=== PATIENT | female | born 1985 | race Caucasian/White ===

== ENCOUNTER → 2017-01-17 | Outpatient (CLI) | payer OTHER ==
[~2017-01-17] MED LIST: /TERBI25T OR; ACET50TA PO; ANUS2.5C2 EXT; BUPRPOW2 OR; CITRACAL; DOCU10ELUD PO; DRIS50002 PO; FLEX10TA2 PO; IBUP100SUS PO; MELOPOW PO; MOM30SS PO; PRENTAB74 PO; PRIL40CA PO; RIBAPOW11; SOBOXONE PO; SUBO8MIS SL; THERGRAN; TIZA4TAB; TOPI25TA2 PO; VITA1CAP25 PO; ZONI25CA2 PO; [UNRECOGNIZED DRUG - OTHER]; [UNRECOGNIZED DRUG - OTHER]; flexeril PO
[2017-01-17 18:17] LABS: BASO % 0.7 % (0.0-1.0); EOS # 0.2 K/mm3 (0.0-0.50); EOS % 3.1 % (0.0-3.0); LARGE UNSTAINED CELL # 0.1 K/mm3 (0.0-0.4); LARGE UNSTAINED CELL % 1.8 % (0.0-4.0); LYMPH # 3.2 K/mm3 (1.5-4.5); LYMPH % 40.5 % (24.0-44.0); MEAN CORPUSCULAR HEMOGLOBIN 29.3 pg (27.0-33.0); MEAN CORPUSCULAR HGB CONC 33.3 g/dl (32.0-36.5); MEAN CORPUSCULAR VOLUME 87.9 fl (80.0-96.0); MONO # 0.3 K/mm3 (0.0-0.8); MONO % 4.1 % (0.0-5.0); NEUTROPHILS # 3.8 K/mm3 (1.8-7.7); NEUTROPHILS % 49.9 % (36.0-66.0); PLATELET COUNT, AUTOMATED 234 k/mm3 (150-450); WHITE BLOOD COUNT 7.6 K/mm3 (4.0-10.0)
[2017-01-17 18:57] LABS: ALBUMIN/GLOBULIN RATIO 1.43 (1.00-1.93); ALKALINE PHOSPHATASE 66 U/L (45-117); ALT/SGPT 33 U/L (12-78); ANION GAP 6 MEQ/L (8-16); AST/SGOT 14 U/L (15-37); BILIRUBIN,TOTAL 0.5 MG/DL (0.2-1.0); BLOOD UREA NITROGEN 12 MG/DL (7-18); CALCIUM LEVEL 8.8 MG/DL (8.5-10.1); CARBON DIOXIDE LEVEL 25 MEQ/L (21-32); CHLORIDE LEVEL 108 MEQ/L (98-107); CREATININE FOR GFR 0.67 MG/DL (0.55-1.02); GLOMERULAR FILTRATION RATE > 60.0 (>60); GLUCOSE, FASTING 79 MG/DL (70-105); SODIUM LEVEL 139 MEQ/L (136-145); TOTAL PROTEIN 6.8 GM/DL (6.4-8.2)
[2017-01-17 19:02] LABS: ERYTHROCYTE SEDIMENTATION RATE 4 mm/hr (0-20)
== END ==
LOC: M LAB 17:18
PROVIDERS: ATTEND Nurse Practitioner Family
DX: R60.1 Generalized edema (principal); M25.50 Pain in unspecified joint; R89.8 Other abnormal findings in specimens from other organs, systems and tissues; E55.9 Vitamin D deficiency, unspecified

== ENCOUNTER → 2017-01-17 | Outpatient (REF) | payer OTHER | LOC: M LAB REF 12:52 | PROVIDERS: ATTEND Nurse Practitioner Family | DX: R81 Glycosuria (principal) ==

== ENCOUNTER 2018-01-29 11:50 | Emergency (ER) | payer OTHER ==
[2018-01-29] MEDS: LIDOCAINE 2% W/EPIN INJ 20ML **PRES FREE INJ (13:15)
[2018-01-29] MEDS: ADACEL/BOOSTRIX VACCINE (DIPHTH/PERTUSS/ACELL/TETANUS)0.5ML SYR (90715) IM (13:18)
== END 2018-01-29 14:41 | disposition home or self-care (01) ==
LOC: M ED 11:50
DX: S61.012A Laceration without foreign body of left thumb without damage to nail, initial encounter (principal); W26.0XXA Contact with knife, initial encounter; Y92.59 Other trade areas as the place of occurrence of the external cause; Y99.0 Civilian activity done for income or pay; F31.9 Bipolar disorder, unspecified; K21.9 Gastro-esophageal reflux disease without esophagitis; Z79.891 Long term (current) use of opiate analgesic; Z79.899 Other long term (current) drug therapy; Z91.048 Other nonmedicinal substance allergy status; F17.210 Nicotine dependence, cigarettes, uncomplicated
CPT/HCPCS: 90715

== ENCOUNTER 2018-02-02 09:48 | Emergency (ER) | payer OTHER | END 2018-02-02 10:59 | disposition home or self-care (01) | LOC: M ED 09:48 | DX: S61.012D Laceration without foreign body of left thumb without damage to nail, subsequent encounter (principal); W26.0XXD Contact with knife, subsequent encounter; F31.9 Bipolar disorder, unspecified; K21.9 Gastro-esophageal reflux disease without esophagitis; F17.210 Nicotine dependence, cigarettes, uncomplicated; Z79.891 Long term (current) use of opiate analgesic; Z79.899 Other long term (current) drug therapy; Z91.048 Other nonmedicinal substance allergy status | CPT/HCPCS: 99282 ==

== ENCOUNTER → 2018-02-08 | Outpatient (REF) | payer OTHER, MEDICAID ==
[2018-02-10 16:20] LABS: H. PYLORI BREATH TEST Positive (Negative)
== END ==
LOC: M LAB REF 09:12
DX: K21.9 Gastro-esophageal reflux disease without esophagitis (principal)
CPT/HCPCS: 83013

== ENCOUNTER → 2018-11-01 | Outpatient (REF) | payer OTHER, MEDICAID ==
[~2018-11-01] MED LIST changes: -/TERBI25T OR; -ACET50TA PO; -DOCU10ELUD PO; +DOCU5LIQ PO; -DRIS50002 PO; +DRIS50003 PO; +IBUP100S44 PO; -IBUP100SUS PO; +IBUP80TA PO; +LAMI1TAB6 OR; +MAPA500T17 PO; +TRIPOIN9 TOP
[2018-11-01 13:37] LABS: ALBUMIN 4.1 GM/DL (3.2-5.2); ALT/SGPT 21 U/L (12-78); BILIRUBIN,TOTAL 0.6 MG/DL (0.2-1.0); BLOOD UREA NITROGEN 10 MG/DL (7-18); CALCIUM LEVEL 8.5 MG/DL (8.5-10.1); CARBON DIOXIDE LEVEL 24 MEQ/L (21-32); CHLORIDE LEVEL 106 MEQ/L (98-107); CHOLESTEROL LEVEL 180 MG/DL (<200); CREATININE FOR GFR 0.71 MG/DL (0.55-1.30); GLOMERULAR FILTRATION RATE > 60.0 (>60); GLUCOSE, FASTING 117 MG/DL (70-100); HDL CHOLESTEROL 40 MG/DL (>40); LDL CHOLESTEROL 120 MG/DL (<100); NON-HDL-C 140 MG/DL; POTASSIUM SERUM 3.7 MEQ/L (3.5-5.1); SODIUM LEVEL 137 MEQ/L (136-145); THYROID STIMULATING HORMONE 0.653 uIU/ML (0.358-3.740); TOTAL PROTEIN 6.9 GM/DL (6.4-8.2); TRIGLYCERIDES LEVEL 100 MG/DL (<150)
[2018-11-01 14:12] LABS: APPEARANCE, URINE CLEAR (CLEAR); BACTERIA, URINE AUTO 1+ (NEGATIVE); BILIRUBIN, URINE AUTO NEGATIVE (NEGATIVE); BLOOD, URINE BLOOD NEGATIVE (NEGATIVE); COLOR, URINE YELLOW (YELLOW); GLUCOSE, URINE (UA) AUTO NEGATIVE (NEGATIVE); KETONE, URINE AUTO NEGATIVE (NEGATIVE); LEUKOCYTE ESTERASE, URINE AUTO NEGATIVE (NEGATIVE); NITRITE, URINE AUTO NEGATIVE (NEGATIVE); PROTEIN, URINE AUTO NEGATIVE (NEGATIVE); RBC, URINE AUTO 0 /HPF (0-3); SPECIFIC GRAVITY URINE AUTO 1.008 (1.002-1.035); SQUAMOUS EPITHELIAL CELL UR AU 0 /HPF (0-6); UROBILINOGEN, URINE AUTO 0.2 mg/dL (0.0-2.0); WBC, URINE AUTO 1 /HPF (0-3)
[2018-11-01 14:26] LABS: CHLAMYDIA DNA AMPLIFICATION NEGATIVE (NEGATIVE); GC DNA AMPLIFICATION NEGATIVE (NEGATIVE)
[2018-11-01 14:26] LABS: HEMOGLOBIN A1c 5.6 %
[2018-11-01 15:53] LABS: BASO % 0.5 % (0.0-1.0); EOS # 0.2 10^3/uL (0.0-0.50); EOS % 2.9 % (0.0-3.0); HEMATOCRIT 43.4 % (36.0-47.0); HEMOGLOBIN 14.3 g/dl (12.0-15.5); LYMPH # 2.8 10^3/uL (1.5-4.5); LYMPH % 42.1 % (24.0-44.0); MEAN CORPUSCULAR HEMOGLOBIN 29.1 pg (27.0-33.0); MEAN CORPUSCULAR HGB CONC 32.9 g/dl (32.0-36.5); MEAN CORPUSCULAR VOLUME 88.2 fl (80.0-96.0); MONO # 0.3 10^3/uL (0.0-0.8); MONO % 5.2 % (0.0-5.0); NEUTROPHILS # 3.2 10^3/uL (1.8-7.7); PLATELET COUNT, AUTOMATED 282 10^3/uL (150-450); RED BLOOD COUNT 4.92 10^6/uL (4.00-5.40); WHITE BLOOD COUNT 6.6 10^3/uL (4.0-10.0)
== END ==
LOC: M LAB REF 12:36
PROVIDERS: ATTEND Nurse Practitioner Adult Health
DX: N39.0 Urinary tract infection, site not specified (principal)

== ENCOUNTER → 2019-12-31 | Outpatient (CLI) | payer OTHER ==
[~2019-12-31] MED LIST changes: +ZONI25CA13 PO; -ZONI25CA2 PO
--- NOTE | 2020-01-01 04:24 | REP ---
Clinical: Evaluate IUD position. Technique: Transabdominal pelvic ultrasound followed by transvaginal examination for better evaluation of the endometrium and adnexa. 3-D sonographic reconstructions obtained. Findings: Normal anteverted uterus measures 7.7 x 3.4 x 4.4 cm. Endometrial complex measures 6 mm thickness. IUD identified in satisfactory position. Left ovary is not visualized. The right ovary is normal in appearance and vascularity without torsion measuring 2.9 x 2.1 x 1.7 cm (RI 0.46). No pelvic fluid or adnexal mass lesion. Impression: 1. Normal uterus with IUD in satisfactory position. 2. Normal right ovary. Left ovary not visualized.
== END ==
LOC: M WHC 15:27
PROVIDERS: ATTEND Physician Assistant
DX: Z97.5 Presence of (intrauterine) contraceptive device (principal)

== ENCOUNTER → 2021-06-03 | Outpatient (REF) | payer OTHER | LOC: M SFHCWAGY 18:38 | PROVIDERS: ATTEND Advanced Practice Midwife | DX: Z12.4 Encounter for screening for malignant neoplasm of cervix (principal) ==

== ENCOUNTER → 2021-06-19 | Outpatient (CLI) | payer OTHER ==
--- NOTE | 2021-06-19 14:50 | REP ---
INDICATION: RADICULOPATHY. COMPARISON: None. TECHNIQUE: AP, lateral, swimmer's, and open-mouth views of the cervical spine. FINDINGS: Lateral view demonstrates straightening of normal lordosis. Alignment is maintained. No acute fracture/compression injury or subluxation. Disc spaces are relatively normal/age-appropriate. Open mouth view demonstrates normal C1-C2 articulation and odontoid process. IMPRESSION: Essentially age-appropriate examination. <Electronically signed by Ko Adam > 06/19/21 [id number]
== END ==
LOC: M WUC 14:14
PROVIDERS: ATTEND Pediatrics
DX: M54.12 Radiculopathy, cervical region (principal)

== ENCOUNTER → 2021-07-10 | Outpatient (CLI) | payer OTHER | LOC: M RAD 09:22 | PROVIDERS: ATTEND Pediatrics | DX: Z86.19 Personal history of other infectious and parasitic diseases (principal); Z90.49 Acquired absence of other specified parts of digestive tract; K76.89 Other specified diseases of liver ==

== ENCOUNTER → 2024-03-23 | Outpatient (REF) | payer OTHER ==
[2024-03-23 13:18] LABS: ALBUMIN 4.1 G/DL (3.2-5.2); ALKALINE PHOSPHATASE 75 U/L (46-116); ALT/SGPT 15 U/L (7.0-40); AST/SGOT 8 U/L (<34); BILIRUBIN,TOTAL 0.4 MG/DL (0.3-1.2); BLOOD UREA NITROGEN 14 MG/DL (9-23); CALCIUM LEVEL 9.4 MG/DL (8.5-10.1); CARBON DIOXIDE LEVEL 25 MMOL/L (20-31); CHLORIDE LEVEL 107 MMOL/L (98-107); CREATININE FOR GFR 0.68 MG/DL (0.55-1.30); GLOMERULAR FILTRATION RATE > 60.0 (>60); GLUCOSE, FASTING 98 MG/DL (60-100); IMMUNOGLOBULIN A 161.5 MG/DL (40-350); POTASSIUM SERUM 4.2 MMOL/L (3.5-5.1); SODIUM LEVEL 138 MMOL/L (136-145); TOTAL PROTEIN 7.2 G/DL (5.7-8.2)
[2024-03-23 13:19] LABS: TOTAL 25(OH) VITAMIN D 35.2 NG/ML (20.0-100.0)
[2024-03-23 13:20] LABS: BASO % 0.6 % (0.0-1.0); EOS # 0.2 10^3/uL (0.0-0.5); EOS % 2.1 % (0.0-3.0); HEMATOCRIT 43.7 % (36.0-47.0); HEMOGLOBIN 14.2 g/dl (12.0-15.5); LYMPH # 2.2 10^3/uL (1.5-5.0); LYMPH % 30.5 % (24.0-44.0); MEAN CORPUSCULAR HEMOGLOBIN 29.1 pg (27.0-33.0); MEAN CORPUSCULAR HGB CONC 32.5 g/dl (32.0-36.5); MEAN CORPUSCULAR VOLUME 89.5 fl (80.0-96.0); MONO # 0.6 10^3/uL (0.0-0.8); MONO % 7.7 % (2.0-8.0); NEUTROPHILS # 4.2 10^3/uL (1.5-8.5); NEUTROPHILS % 58.8 % (36.0-66.0); PLATELET COUNT, AUTOMATED 304 10^3/uL (150-450); RED BLOOD COUNT 4.88 10^6/uL (4.00-5.40); WHITE BLOOD COUNT 7.1 10^3/uL (4.0-10.0)
[2024-03-23 13:22] LABS: VITAMIN B12 LEVEL 352 PG/ML (211-911)
== END ==
LOC: M LAB REF 12:21
PROVIDERS: ATTEND Pediatrics
DX: R19.5 Other fecal abnormalities (principal); E55.9 Vitamin D deficiency, unspecified

== ENCOUNTER → 2024-08-23 | Outpatient (REF) | payer OTHER | LOC: M LAB REF 16:09 | PROVIDERS: ATTEND Physician Assistant Medical | DX: J02.9 Acute pharyngitis, unspecified (principal) ==

== ENCOUNTER → 2024-11-28 | Outpatient (REF) | payer OTHER ==
[2024-11-28 19:03] LABS: BASO # 0.1 10^3/uL (0.0-0.2); BASO % 0.6 % (0.0-1.0); EOS # 0.1 10^3/uL (0.0-0.5); EOS % 1.4 % (0.0-3.0); HEMATOCRIT 42.3 % (36.0-47.0); HEMOGLOBIN 13.8 g/dl (12.0-15.5); LYMPH # 2.9 10^3/uL (1.5-5.0); MEAN CORPUSCULAR HEMOGLOBIN 29.6 pg (27.0-33.0); MEAN CORPUSCULAR HGB CONC 32.6 g/dl (32.0-36.5); MEAN CORPUSCULAR VOLUME 90.8 fl (80.0-96.0); MONO # 0.4 10^3/uL (0.0-0.8); MONO % 4.1 % (2.0-8.0); NEUTROPHILS # 5.5 10^3/uL (1.5-8.5); NEUTROPHILS % 61.7 % (36.0-66.0); PLATELET COUNT, AUTOMATED 343 10^3/uL (150-450); RED BLOOD COUNT 4.66 10^6/uL (4.00-5.40)
[2024-11-28 19:23] LABS: HEMOGLOBIN A1c 5.1 % (4.0-6.0)
== END ==
LOC: M LAB REF 17:51
PROVIDERS: ATTEND Pediatrics
DX: E66.812 Obesity, class 2 (principal)

== ENCOUNTER → 2025-06-25 | Outpatient (REF) | payer OTHER | LOC: M LAB REF 16:15 | PROVIDERS: ATTEND Pediatrics | DX: K21.9 Gastro-esophageal reflux disease without esophagitis (principal) ==